=== PATIENT | female | born 1970 | race Two or more races ===

== ENCOUNTER 2022-11-24 17:22 | Emergency (ER) | payer OTHER ==
[~2022-11-24] VITALS: Ht 149.9 cm; Wt 59.0 kg
[2022-11-24] MEDS ORDERED: KETOROLAC TROMETH 30 MG/ML 1ML VIAL IM ONE (20:00)
[2022-11-24] MEDS ORDERED: diphenhdrAMINE HCL 50 MG/1 ML VL IM ONE (20:00)
[2022-11-24] MEDS ORDERED: METOCLOPRAMIDE HCL 5MG/ml INJ 2ml VIAL IM ONE (20:00)
[2022-11-24] MEDS ORDERED: MIDAZOLAM HCL 2MG/2ML 2ml VIAL (1mg/ml) ONE (20:43)
[2022-11-24 20:55] VITALS: PULSE 65; RESP 16; O2SAT 97
[2022-11-24 22:34] VITALS: PULSE 56; RESP 18; TEMP 98.4; O2SAT 97
[2022-11-25] VITALS: BP 133/71; PULSE 54; RESP 20; O2SAT 97
== END 2022-11-25 01:31 | disposition home or self-care (01) ==
LOC: ER 17:22
DX: G97.1 Other reaction to spinal and lumbar puncture (principal); E11.9 Type 2 diabetes mellitus without complications; E78.5 Hyperlipidemia, unspecified; I10 Essential (primary) hypertension
CPT/HCPCS: 96372; 99284; J1200; J1885; J2250; J2765; J7030